=== PATIENT | female | born 2000 | race Caucasian/White ===

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

== ENCOUNTER → 2023-08-17 | Outpatient (REF) | payer BC, OTHER | LOC: M SFHCWAGY 12:55 | PROVIDERS: ATTEND Nurse Practitioner Family | DX: Z12.4 Encounter for screening for malignant neoplasm of cervix (principal) ==

== ENCOUNTER → 2024-07-11 | Outpatient (CLI) | payer SELFPAY ==
[2024-07-11 19:22] LABS: HEMATOCRIT 37.1 % (36.0-47.0); HEMOGLOBIN 12.5 g/dl (12.0-15.5); MEAN CORPUSCULAR HEMOGLOBIN 29.1 pg (27.0-33.0); MEAN CORPUSCULAR HGB CONC 33.7 g/dl (32.0-36.5); MEAN CORPUSCULAR VOLUME 86.5 fl (80.0-96.0); PLATELET COUNT, AUTOMATED 223 10^3/uL (150-450); RED BLOOD COUNT 4.29 10^6/uL (4.00-5.40); WHITE BLOOD COUNT 8.3 10^3/uL (4.0-10.0)
[2024-07-11 19:45] LABS: GC DNA AMPLIFICATION NEGATIVE (NEGATIVE)
[2024-07-11 19:55] LABS: HIV 1&2 SCREEN NEGATIVE (NEGATIVE)
[2024-07-11 20:03] LABS: HEPATITIS C VIRUS ABY INDEX 0.03 INDEX (<0.8)
[2024-07-13 17:06] LABS: Trichomonas vaginalis (AMP) NOT DETECTED (NEGATIVE)
== END ==
LOC: M PLALAB 14:26
PROVIDERS: ATTEND Advanced Practice Midwife
DX: Z34.01 Encounter for supervision of normal first pregnancy, first trimester (principal)

== ENCOUNTER → 2024-08-22 | Outpatient (CLI) | payer OTHER | LOC: M WHC 14:14 | PROVIDERS: ATTEND Obstetrics & Gynecology | DX: Z36.89 Encounter for other specified antenatal screening (principal); O32.1XX0 Maternal care for breech presentation, not applicable or unspecified; Z3A.19 19 weeks gestation of pregnancy ==

== ENCOUNTER → 2024-09-15 | Outpatient (CLI) | payer OTHER | LOC: M WHC 11:07 | PROVIDERS: ATTEND Advanced Practice Midwife | DX: Z34.02 Encounter for supervision of normal first pregnancy, second trimester (principal) ==

== ENCOUNTER → 2024-12-13 | Outpatient (CLI) | payer OTHER | LOC: M WHC 07:38 | PROVIDERS: ATTEND Obstetrics & Gynecology | DX: O26.843 Uterine size-date discrepancy, third trimester (principal); Z3A.35 35 weeks gestation of pregnancy ==

== ENCOUNTER → 2024-12-22 | Outpatient (REF) | payer OTHER ==
[~2024-12-22] MED LIST changes: +PREN200C PO
== END ==
LOC: M PLALAB 13:40
PROVIDERS: ATTEND Advanced Practice Midwife
DX: Z34.03 Encounter for supervision of normal first pregnancy, third trimester (principal)

== ENCOUNTER 2024-12-27 05:24 | Inpatient (IN) | payer OTHER ==
[2024-12-27] VITALS (9 sets, daily range): BP systolic 91–113; BP diastolic 53–77; TEMP 97; O2SAT 95–100
[~2024-12-27] VITALS: Ht 160 cm; Wt 67.7 kg
[2024-12-27 06:19] LABS: PLATELET COUNT, AUTOMATED 191 10^3/uL (150-450)
[2024-12-27] MEDS ORDERED: OXYTOCIN 30UNITS IN 0.9% NaCl 500ML IV BAG As Ordered ONE (07:20)
[2024-12-27] MEDS ORDERED: MORPHINE PRES-FREE INJ 10 MG/10 ML VIAL As Ordered ONE (07:20)
[2024-12-27] MEDS: BICITRA 30 ML SOLN UDC PO ONE (07:20)
[2024-12-27] MEDS: ceFAZolin SODIUM 2 GM in DEXTROSE 5% (D5W) ADV/MINI-BAG 50 ML IV ONE (07:20)
[2024-12-27] MEDS ORDERED: ONDANSETRON 4MG 2ML VIAL As Ordered ONE (07:21)
[2024-12-27] MEDS ORDERED: dexAMETHasone 4 MG/ML 1 ML VIAL As Ordered ONE (07:21)
[2024-12-27] MEDS ORDERED: OXYTOCIN INJ 10UNITS/ML 1ML VIAL As Ordered ONE (07:21)
[2024-12-27] MEDS ORDERED: ACETAMINOPHEN 1000MG/100ML IV BAG As Ordered ONE (07:56)
[2024-12-27 07:58] LABS: HIV 1&2 SCREEN NEGATIVE (NEGATIVE)
[2024-12-27] MEDS ORDERED: PHENYLephrine 500MCG 5ML (100MCG/ML) SYRINGE As Ordered ONE (08:05)
[2024-12-27] MEDS ORDERED: KETOROLAC 30 MG/ML 1 ML VIAL As Ordered ONE (08:05)
[2024-12-27] MEDS ORDERED: RHOGAM 300MCG (1500IU) INJ IM SCH (08:50)
[2024-12-27] MEDS ORDERED: CALCIUM CARBONATE 500 MG CHEW U/D PO PRN (08:50)
[2024-12-27] MEDS ORDERED: **NOTE PATIENT COMMENT** MISC XX SCH (08:50)
[2024-12-27] MEDS ORDERED: ONDANSETRON 4MG 2ML VIAL IV PRN (08:50)
[2024-12-27] MEDS ORDERED: diphenhydrAMINE 50 MG/ML VIAL IV PRN (08:50)
[2024-12-27] MEDS ORDERED: SIMETHICONE 80MG CHEW TAB PO PRN (08:50)
[2024-12-27] MEDS ORDERED: LR 1,000 ML IV SCH (08:50)
[2024-12-27] MEDS ORDERED: NALOXONE INJ 0.4 MG/1 ML VIAL IV PRN ×2 (08:50)
[2024-12-27] MEDS ORDERED: MOM 30 ML SUSPENSION UDC PO PRN (08:50)
[2024-12-27] MEDS: OXYTOCIN DRIP 30 UNITS in IV 1 EA IV SCH (08:59)
[2024-12-27] MEDS ORDERED: HOME MED LIST COMPLETE! XX SCH (10:35)
[2024-12-27] MEDS: SLF 3 ML SYR IV SCH (13:52)
[2024-12-27] MEDS: FERROUS SULFATE 325 MG TAB PO SCH (13:52)
[2024-12-27] MEDS: PRENATAL VITAMINS CHEWABLE TABLET PO SCH (13:52)
[2024-12-27] MEDS: DOCUSATE SODIUM 100 MG CAPSULE PO SCH (13:52)
[2024-12-27] MEDS: KETOROLAC 30 MG/ML 1 ML VIAL IV SCH (13:53)
[2024-12-28 02:00] VITALS: BP 111/58; O2SAT 97
[2024-12-28 06:00] VITALS: BP 119/64; O2SAT 99
[2024-12-28 07:37] LABS: PLATELET COUNT, AUTOMATED 184 10^3/uL (150-450)
[2024-12-28] MEDS: PERCOCET 5MG/325MG TAB PO PRN ×2 (09:01→16:15)
[2024-12-28] MEDS: IBUPROFEN 800 MG TAB PO SCH (09:01)
[2024-12-28] MEDS: TETANUS/DIPHTH/ACEL. PERTUSSIS 0.5 ML SYR IM.IMMUN ONE (09:02)
[2024-12-28 09:58] VITALS: BP 107/63; O2SAT 98
[2024-12-28 14:00] VITALS: BP 100/59; O2SAT 97
[2024-12-28 17:54] VITALS: BP 114/74; O2SAT 99
[2024-12-28 22:00] VITALS: BP 108/58; O2SAT 97
[2024-12-29 02:00] VITALS: BP 114/59; O2SAT 98
[2024-12-29] MEDS ORDERED: IBUPROFEN 800 MG TAB As Ordered ONE (02:21)
[2024-12-29 06:00] VITALS: BP 115/71; O2SAT 98
[2024-12-29] MEDS ORDERED: IBUP80TA PO (08:34)
[2024-12-29] MEDS ORDERED: COLA100C5 PO (08:34)
[2024-12-29] MEDS ORDERED: MEASLES,MUMPS,RUBELLA VACCINE INJ (MMR-II) SC.IMMUN ONE (09:00)
== END 2024-12-29 11:30 | disposition home or self-care (01) | DRG 540 ==
LOC: M LDI 05:24 → M OBS 10:00
PROVIDERS: ADMIT Obstetrics & Gynecology; ATTEND Obstetrics & Gynecology
PROC: 10D00Z1 Extraction of Products of Conception, Low, Open Approach (ICD-10-PCS; principal; 2024-12-27 07:30)
DX: O32.1XX0 Maternal care for breech presentation, not applicable or unspecified (principal); O41.03X0 Oligohydramnios, third trimester, not applicable or unspecified; Z37.0 Single live birth; Z3A.37 37 weeks gestation of pregnancy; Z88.0 Allergy status to penicillin